=== PATIENT | male | born 1950 | race Caucasian/White ===

== ENCOUNTER 2016-12-10 15:27 | Emergency (ER) | payer OTHER ==
[2016-12-10 16:01] LABS: LEUKOCYTE ESTERASE,URINE NEGATIVE (NEGATIVE); NITRITE,URINE NEGATIVE (NEGATIVE)
[2016-12-10 16:02] LABS: COLOR DARK YELLOW
[2016-12-10] MEDS ORDERED: NS 1,000 ML IV ONE (16:04)
[2016-12-10] MEDS ORDERED: HYDROmorphONE/DILAUDID 1 MG/ML SYR IVP ONE (16:07)
[2016-12-10] MEDS ORDERED: METOCLOPRAMIDE 10 MG/2 ML VIAL IVP ONE (16:08)
[2016-12-10 16:10] LABS: MUCUS TRACE /lpf (NONE-1+); RBC,URINE 25-50 /hpf (0-3); WBC,URINE NONE SEEN /hpf (0-3)
[2016-12-10 17:09] LABS: ANION GAP 15 mEq/L (8-16); CALCIUM 9.6 mg/dL (8.5-10.4); CARBON DIOXIDE 27 mEq/l (22-31); CHLORIDE 98 mEq/L (97-110); CREATININE 0.9 mg/dL (0.7-1.3); GLOMERULAR FILTRATION RATE > 60; GLUCOSE 149 mg/dL (70-100); POTASSIUM 4.3 mEq/L (3.5-5.2); SODIUM 140 mEq/L (134-144)
[2016-12-10] MEDS ORDERED: KETOROLAC 30 MG/1 ML SDV IVP ONE (17:19)
--- NOTE | 2016-12-10 17:21 | CT ---
CT Abdomen and Pelvis (Without Contrast) at 1642 hours History: Right flank pain. Technique: Spiral images were acquired from the upper abdomen through the pelvis without intravenous or oral contrast which limits the study. Dose reduction techniques were utilized. Findings: Abdomen: Moderate right hydronephrosis, secondary to a 12 x 10 mm calculus in the right renal pelvis near the right ureteropelvic junction with dilation of the renal pelvis and calyces and a small amoun t of perinephric fluid. Additionally, in the lower pole right kidney within the calyx, there are 2 ad ditional calculi measuring 5 and 3 mm on image 193 of series 3. No left nephrolithiasis or left hydro nephrosis. Moderate atherosclerotic tortuous abdominal aorta and iliac arteries without aneurysm. No hepatosplen omegaly or ascites. No peripancreatic fluid. No bowel obstruction or lymphadenopathy. Pelvis: No evidence of distal ureteral calculi, hydroureter or bladder calculi. Enlarged prostate me asuring 6.5 x 4.8 cm. No significant pelvic adenopathy. Impression: 1. Moderate right hydronephrosis secondary to a right renal pelvis 12 x 10 mm calculus. 2. Additional right nephrolithiasis with a 5 and 3 mm calyceal calculus. 3. No left nephrolithiasis or left hydronephrosis. 4. Atherosclerotic aorta without aneurysm. Attention: This CT examination is specifically designed to evaluate patients who are clinically susp ected of having acute obstructive uropathy. This examination does not use radiographic contrast, and as such, provides only a limited evaluation of the abdomen, pelvis and retroperitoneum. If there is further clinical suspicion for pathological conditions other than obstructive uropathy, a complete C T evaluation of the abdomen and pelvis utilizing intravenous, oral, and rectal contrast should be con sidered. Findings and recommendations discussed with Emergency Department physician, Dr. Jeremy Blankenship at 1 700 hours today. Final report concurs with initial preliminary interpretation.
--- NOTE | 2016-12-10 17:36 | UCPHY ---
[id number] for 3 days Time Seen by Provider: 12/10/16 16:03 HPI/ROS: This patient reports gradual onset of right flank pain over the past 3 days that has worsened. He states location is similar to previous kidney stone pain and that the intensity of the pain while initially mild is now 7/10 in intensity. He has associated nausea and dry heaves. He notes no exacerbating factors for his symptoms. ROS: No fevers or other constitutional symptoms. HEENT: No complaints pulmonary: No cough. Cardiovascular: No lightheadedness GI: No significant belly pain : He has noticed hematuria. No testicle pain swelling. 10 point ROS is otherwise negative. Source: Patient Exam Limitations: No limitations - Personal History Current Tetanus Diphtheria and Acellular Pertussis (TDAP): No - Medical/Surgical History PMH: Prior kidney stones. Hx Asthma: No Hx Chronic Respiratory Disease: No Hx Diabetes: No Hx Cardiac Disease: No Hx Renal Disease: No Hx Cirrhosis: No Hx Alcoholism: No Hx HIV/AIDS: No Hx Splenectomy or Spleen Trauma: No Other PMH: sinus issues, kidney stones, , elevated psa and biopsies negative. vitreous separation eye)thyroidectomy - Family History Significant Family History: No pertinent family hx - Social History Smoking Status: Never smoked Alcohol Use: Occasionally Drug Use: None - Physical Exam Exam: General Appearance: Alert, no distress. Eyes: Pupils equal and round no pallor or injection. ENT, Mouth: Mucous membranes moist. Respiratory: There are no retractions, lungs are clear to auscultation. Cardiovascular: Regular rate and rhythm. Back: Minimal right CVA tenderness. Gastrointestinal: Abdomen is soft and nontender, no masses, bowel sounds normal. : No testicular swelling or tenderness. Neurological: Alert with no focal deficits. Skin: Warm and dry, no rashes. Musculoskeletal: Neck is supple nontender. Extremities are symmetrical, full range of motion. Psychiatric: Mood and affect are normal DIFFERENTIAL DIAGNOSIS: After history and physical exam differential diagnosis was considered for ureteral stone, pyelonephritis, low back strain Constitutional: Initial Vital Signs Heart Rate 102 H 12/10/16 15:44 Respiratory Rate 16 12/10/16 15:44 Blood Pressure 149/69 H 12/10/16 15:44 O2 Sat (%) 95 12/10/16 15:44 O2 Delivery Mode Room Air Allergies/Adverse Reactions: ondansetron Allergy (Verified 12/10/16 15:41) Home Medications: Medication Instructions Recorded Atorvastatin Calcium [Lipitor 20 20 mg PO HS 04/06/16 mg (*)] Levothyroxine [Synthroid 150 mcg 150 mcg PO DAILY06 04/06/16 (*)] Tamsulosin HCl [Flomax 0.4 MG (*)] 0.4 mg PO DAILY 04/06/16 Promethazine HCl [Phenergan 50mg 50 mg WI Q6 PRN #4 suppr 12/10/16 supp (*)] oxyCODONE/APAP 5/325 [Percocet 1 - 2 tab PO Q4-6PRN PRN #20 tab 12/10/16 5/325 (*)] Medical Decision Making - Diagnostics Imaging: CT abdomen pelvis without IV contrast reveals a 10 x 12 mm proximal right ureteral stone with [id number] hydronephrosis per Dr. Gonzalez who read the CT. ED Course/Re-evaluation: IV Reglan and Benadryl with relief of nausea and vomiting normal saline bolus-1 L Toradol after review of normal renal function with further improvement. Time of discharge patient is comfortable. I spoke with Dr. Braun his urologist arrange close follow-up for definitive treatment of his large proximal stone. Discussion: Despite large proximal stone-no evidence of infectious complication or renal insufficiency/renal failure. Patient's symptoms are well controlled is tolerating good p.o. intake. He will have close follow-up with Urology for definitive treatment. - Data Points Laboratory Results: Laboratory Results 12/10/16 16:28 Medications Given: Discontinued Medications Diphenhydramine HCl (Benadryl Injection) 25 mg IVP EDNOW ONE Stop: 12/10/16 16:09 Last Admin: 12/10/16 16:50 Dose: 25 mg Hydromorphone HCl (Dilaudid) 1 mg IVP EDNOW ONE Stop: 12/10/16 16:08 Last Admin: 12/10/16 16:50 Dose: 1 mg Sodium Chloride (Ns) 1,000 mls @ 0 mls/hr IV ONCE ONE PRN Reason: Wide Open Stop: 12/10/16 16:05 Last Admin: 12/10/16 16:51 Dose: 1,000 mls Ketorolac Tromethamine (Toradol) 30 mg IVP EDNOW ONE Stop: 12/10/16 17:20 Last Admin: 12/10/16 17:43 Dose: 30 mg Metoclopramide HCl (Reglan Injection) 10 mg IVP EDNOW ONE Stop: 12/10/16 16:09 Last Admin: 12/10/16 16:51 Dose: 10 mg Departure - Departure Disposition: Home, Routine, Self-Care Clinical Impression: Ureteral stone Instructions: Ureteral Stones (ED) Additional Instructions: Diagnosis: Ureteral stone Plan: Ibuprofen-600 mg for 6 hours Percocet in addition if needed for pain control Phenergan suppository if needed for nausea or vomiting Call Dr. Doyle tomorrow to arrange a close follow-up for definitive treatment of your ureteral stone. Go to the emergency department for any significant worsening despite the treatment plan. Referrals: Reagan Radford MD [Primary Care Provider] - As per Instructions Prescriptions: oxyCODONE/APAP 5/325 [Percocet 5/325 (*)] 1 - 2 tab PO Q4-6PRN PRN #20 tab PRN Reason: Pain Promethazine HCl [Phenergan 50mg supp (*)] 50 mg WI Q6 PRN #4 suppr PRN Reason: Nausea/Vomiting With Chemo - PQRS PQRS Measurement: 134: Depression screening and followup, PRIME MD-PHQ2 (12 years and older) Over the last 2 weeks, how often have you been bothered by any of the following problems? 1. Feeling down, depressed, or hopeless? 2. Little interest or pleasure in doing things? Patient answered no to both 1 and 2 130: Documentation of medications. Reviewed all patient medications, doses, route and frequency. 226: Do you smoke? [No.] 47: 65 and older: Advanced care planning. Patient designates surrogate decision maker as spouse. 51: 18 years old and older with diagnosis of COPD, spirometry performance. NA 52: 18 years old and older with COPD and symptoms of COPD or FEV1<60% predicted prescribed a B Agonist. NA
[2016-12-10 18:05] VITALS: BP 142/62; PULSE 78; RESP 18; TEMP 98; O2SAT 92
== END 2016-12-10 18:01 | disposition home or self-care (01) ==
LOC: CED 15:27
DX: N20.1 Calculus of ureter (principal); Z87.442 Personal history of urinary calculi
CPT/HCPCS: 74176; 96361; 96374; 96375; G0463; J1170; J1885; J2765; 80048-PO; 81003-PO; 81015-PO; 99215-PO; J1200

== ENCOUNTER → 2018-04-16 | Day surgery (SDC) | payer OTHER ==
--- NOTE | 2018-04-16 09:41 | GOP ---
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 PREOPERATIVE DIAGNOSIS: Elevated Prostate-specific antigen (PSA). POSTOPERATIVE DIAGNOSIS: Elevated Prostate-specific antigen (PSA). PROCEDURE PERFORMED: Transrectal ultrasound of the prostate with ultrasound-guided prostate biopsies . FINDINGS: INDICATIONS: The patient is a 67-year-old male with progressively increasing PSA and high 4K score o f 70%. After discussing options, he elected to come in for ultrasound-guided prostate biopsies. DESCRIPTION OF PROCEDURE: After informed consent with the patient in the left lateral decubitus posi tion, the transrectal ultrasound probe was inserted and images and measurements of the prostate were obtained. 10 mL of 1% lidocaine were then used to infiltrate the periprosthetic tissue. A total of 12 core biopsies were then obtained of the right and left base mid and apical tissue. The patient to lerated the procedure well and was discharged in stable condition. There were no complications. /[id number]/MODL
== END | disposition home or self-care (01) ==
LOC: BMCIMAGING 07:27
PROVIDERS: ATTEND Urology
PROC: 0VB03ZX Excision of Prostate, Percutaneous Approach, Diagnostic (ICD-10-PCS; principal; 2018-04-16)
DX: R97.20 Elevated prostate specific antigen [PSA] (principal)

== ENCOUNTER → 2019-05-05 | Outpatient (CLI) | payer OTHER | LOC: BMCIMAGING 08:38 ==